=== PATIENT | female | born 1955 | race Caucasian/White ===

== ENCOUNTER 2017-08-31 05:01 | Emergency (ER) | payer BC ==
[~2017-08-31 05:01] MED LIST: CEPHALEXIN500 M1 PO; LORTAB 5/500 501 TAB PO; NO HOME MEDICATIONS
[2017-08-31 05:10] VITALS: BP 172/90
[2017-08-31] MEDS ORDERED: PRINIVIL20 MG PO (05:14)
[2017-08-31 05:55] VITALS: TEMP 98.6
[2017-08-31] MEDS ORDERED: AMOXICILLIN 8751 TAB PO (05:58)
[2017-08-31] MEDS ORDERED: TYLENOL W/COD1 UDTAB PO (05:58)
[2017-08-31] MEDS ORDERED: LIDOCAINE HCL100 M1 MM (06:12)
[2017-08-31 06:17] VITALS: PULSE 65
== END 2017-08-31 06:17 | disposition home or self-care (01) ==
LOC: COL.ER 05:01
DX: G89.18 Other acute postprocedural pain (principal); I10 Essential (primary) hypertension

== ENCOUNTER → 2021-12-26 | Outpatient (CLI) | payer MEDICARE ==
[~2021-12-26] MED LIST changes: +AMOXICILLIN 8751 TAB PO; +LIDOCAINE HCL100 M1 MM; +PRINIVIL20 MG PO; +TYLENOL W/COD1 UDTAB PO
== END ==
LOC: MC.RAD 11:42
DX: Z12.31 Encounter for screening mammogram for malignant neoplasm of breast (principal)

== ENCOUNTER → 2024-02-03 | Outpatient (CLI) | payer MEDICARE, OTHER | LOC: MC.RAD 11:00 | DX: Z12.31 Encounter for screening mammogram for malignant neoplasm of breast (principal) ==